=== PATIENT | female | born 1965 | race Caucasian/White ===

== ENCOUNTER 2024-09-28 11:46 | Emergency (ER) | payer OTHER ==
[~2024-09-28] VITALS: Ht 167.6 cm; Wt 86.7 kg
[~2024-09-28 11:46] MED LIST: ASPIR-LOW81 MG PO; AZULFIDINE500 MG PO; NAPROXEN SODIU220 MG PO; OMEPRAZOLE20 MG PO; PRAVASTATIN SOD10 MG PO; PREDNISONE20 MG PO; TRAZODONE HCL50 MG PO; VITAMIN D2000 UNI1 PO
[2024-09-28] MEDS ORDERED: LIDODERM1 EACH TOP (18:26)
[2024-09-28] MEDS ORDERED: METHYLPREDNISOLO4 M1 PO (18:26)
[2024-09-28 19:07] VITALS: BP 102/67
[2024-09-28] MEDS ORDERED: SULFASALAZINE500 M1 PO (19:11)
[2024-09-28] MEDS ORDERED: ATORVASTATIN CA40 MG PO (19:11)
== END 2024-09-28 19:06 | disposition home or self-care (01) ==
LOC: ED 11:46
DX: M54.2 Cervicalgia (principal); Z87.891 Personal history of nicotine dependence
CPT/HCPCS: 20552; 71046; 99283-25